=== PATIENT | female | born 1940 | race Caucasian/White ===

== ENCOUNTER 2016-08-18 08:28 | Day surgery (SDC) | payer MEDICARE, BC ==
[~2016-08-18] VITALS: Ht 167.6 cm; Wt 55.9 kg
[~2016-08-18 08:28] MED LIST: CLOB100F13 TP; CYCL1DRO OP; HYDR25TA6 PO; ROSU20TA PO
[2016-08-18] MEDS ORDERED: SODIUM CHLORIDE 0.9% 1,000 ML IV ONE (08:37)
[2016-08-18 08:52] VITALS: BP 137/85
[2016-08-18] MEDS ORDERED: PLEASE ENTER HEIGHT AND WEIGHT MC SCH (09:00)
[2016-08-18] MEDS ORDERED: CALC-649 PO (09:24)
[2016-08-18] MEDS ORDERED: DSS PO (09:24)
[2016-08-18] MEDS ORDERED: ASPI-621 PO (09:24)
[2016-08-18] MEDS ORDERED: WARF1TAB7 PO (09:24)
[2016-08-18] MEDS ORDERED: METO50TA82 PO (09:24)
[2016-08-18] MEDS ORDERED: AMIO100T4 PO (09:24)
[2016-08-18] MEDS ORDERED: WARF2TAB7 PO (09:24)
[2016-08-18] MEDS ORDERED: FENTANYL PF 100 MCG/2ML ONE (10:08)
[2016-08-18] MEDS ORDERED: MIDAZOLAM 1 MG/ML, 5ML ONE (10:08)
[2016-08-18] MEDS ORDERED: HEPARIN 1,000 UNITS/ML, 10ML ONE (10:08)
[2016-08-18] MEDS ORDERED: VERAPAMIL 2.5 MG/ML, 2ML ONE (10:10)
[2016-08-18] MEDS ORDERED: SODIUM CHLORIDE 0.9% 1,000 ML IV SCH (10:57)
== END 2016-08-18 13:40 | disposition home or self-care (01) ==
LOC: CACL 08:28
PROVIDERS: ATTEND Internal Medicine Cardiovascular Disease
DX: I42.9 Cardiomyopathy, unspecified (principal); I11.0 Hypertensive heart disease with heart failure; I50.21 Acute systolic (congestive) heart failure; Z85.3 Personal history of malignant neoplasm of breast; Z95.0 Presence of cardiac pacemaker; Z95.2 Presence of prosthetic heart valve
CPT/HCPCS: 36415; 85610; 93005; 93454; C1894; J2250; J3010; Q9967; J1644

== ENCOUNTER → 2016-08-24 | Outpatient (CLI) | payer MEDICARE, BC ==
[~2016-08-24] MED LIST changes: +AMIO100T4 PO; +ASPI-621 PO; +CALC-649 PO; +DSS PO; +METO50TA82 PO; +WARF1TAB7 PO; +WARF2TAB7 PO
== END | disposition home or self-care (01) ==
LOC: RAD 17:39
PROVIDERS: ATTEND Physician Assistant
DX: I97.630 Postprocedural hematoma of a circulatory system organ or structure following a cardiac catheterization (principal); M25.431 Effusion, right wrist

== ENCOUNTER → 2016-08-28 | Outpatient (CLI) | payer MEDICARE, BC | END | disposition home or self-care (01) | LOC: CFH 13:34 | PROVIDERS: ATTEND Internal Medicine Cardiovascular Disease | DX: Z95.2 Presence of prosthetic heart valve (principal) | CPT/HCPCS: 93306 ==